=== PATIENT | male | born 1940 | race Caucasian/White ===

== ENCOUNTER 2017-10-19 13:43 | Outpatient (CLI) | payer MEDICARE, OTHER ==
--- NOTE | 2017-10-19 16:20 | MRI ---
CERVICAL SPINE MRI WITH AND WITHOUT CONTRAST: INDICATION: Cervical radiculopathy. COMPARISON: No prior imaging comparison available. FINDINGS: There is multilevel osseous fusion of the cervical spine spanning C4 through C7 levels. There is oss eous incorporation which obliterates the [place]. croix disk spaces throughout this region. There is associa rodrick multilevel posterior decompression. There is an associated focal kyphosis, as well with a result ant generalized mild anterior CSF effacement of the region of multilevel osseous fusion. This does r esult in multilevel ventral cord flattening of the operative site C4 through C7 with mild associated postoperative osseous central canal stenosis. Throughout the operative level, there is also osseous hypertrophy of the bilateral uncinate process, with associated mild to moderate bilateral neural fora haresh narrowing throughout the operative site. At the C2-3 level, there is a disk-osteophyte, most pronounced at the right paracentral zone with mil d effacement of the ventral thecal sac. There is bilateral facet hypertrophy with mild to moderate r ight and mild left neural foraminal narrowing. At the C3-4 level, broad-based disk-osteophyte results in mild central canal stenosis and mild ventra l cord flattening. There is bilateral uncinate process and facet hypertrophy producing moderate bifo raminal stenosis. Cervicothoracic junction reveals a broad-based disk-osteophyte with mild narrowing of the central can al and ventral cord flattening as well as mild bilateral neural foraminal narrowing. Postcontrast imaging reveals no pathologic intramedullary enhancement or mass producing enhancement o f the vertebral canal. The imaged posterior fossa contents are grossly unremarkable. No significant intramedullary signal abnormality is identified. IMPRESSION: Multilevel osseous fusion with associated posterior decompression of the mid to lower cervical spine. Mild multilevel ventral cord effacement as a result of osseous bridging and associated kyphosis wit hout associated pathologic intramedullary enhancement. Additional details are described above. POS: [facility]
[2017-10-19] MEDS ORDERED: Gadobenate Dimeglumine 529 MG/1 ML (20ML VIAL) ONE (16:26)
== END 2017-10-19 13:44 | disposition home or self-care (01) ==
LOC: MRI 13:43
PROVIDERS: ATTEND Nurse Practitioner Family
DX: M54.12 Radiculopathy, cervical region (principal); M40.202 Unspecified kyphosis, cervical region; Z98.1 Arthrodesis status
CPT/HCPCS: 72156; A9579

== ENCOUNTER 2018-04-09 16:03 | Outpatient (CLI) | payer MEDICARE, OTHER ==
[2018-04-09 16:43] LABS: #Basophils 0.1 thou/uL (0.0-0.2); #Eosinphils 0.2 thou/uL (0.0-0.7); #Lymphocytes 2.4 thou/uL (1.20-3.40); #Monocytes 0.7 thou/uL (0.11-0.59); #Neutrophils 4.6 thou/uL (1.40-6.50); %Basophils 0.9 % (0.0-1.0); %Eosinophils 2.5 % (0.0-10.0); %Lymphocytes 30.3 % (21.0-51.0); %Monocytes 8.4 % (0.0-10.0); %Neutrophils 57.9 % (42.0-75.0); Hemoglobin 14.3 g/dL (14.0-18.0); Mean Corpuscular HGB CONC 34.3 g/dL (32.0-36.0); Mean Corpuscular Hemoglobin 30.9 pg (27.0-31.0); Mean Platelet Volume 7.8 fL (7.4-10.4); Platelet Count 225 thou/uL (130-400); Red Blood Cell (RBC) Count 4.63 mill/uL (4.70-6.10); White Blood Cell (WBC) Count 7.9 thou/uL (4.8-10.8)
[2018-04-09 17:03] LABS: ALT (SGPT) 39 U/L (8-55); AST (SGOT) 24 U/L (5-34); Albumin 4.2 g/dL (3.4-4.8); Alkaline Phosphatase 78 U/L (40-150); Anion Gap 11 mmol/L (10-20); BUN (Urea Nitrogen) 32 mg/dL (8.4-25.7); Bilirubin, Total 0.5 mg/dL (0.2-1.2); Calc. Creatinine Clearance 0 mL/min (70-130); Calcium 9.8 mg/dL (7.8-10.44); Carbon Dioxide 25 mmol/L (23-31); Chloride 108 mmol/L (98-107); Estimated GFR-MDRD 55; Globulin 2.5 g/dL (2.4-3.5); Glucose 111 mg/dL (83-110); Potassium 4.5 mmol/L (3.5-5.1); Protein, Total 6.7 g/dL (5.8-8.1); Sodium 139 mmol/L (136-145)
--- NOTE | 2018-04-09 19:31 | EKG ---
Test Reason : Blood Pressure : / mmHG Vent. Rate : 065 BPM Atrial Rate : 065 BPM P-R Int : 176 ms QRS Dur : 104 ms QT Int : 384 ms P-R-T Axes : 017 041 036 degrees QTc Int : 399 ms Normal sinus rhythm Normal ECG When compared with ECG of 07-JUL-2005 13:41, No significant change was found Confirmed by JAQUELINE CRAMER, DR. Guzman ([id number]) on 04/09/2018 7:30:59 PM Referred By: HARINI Confirmed By:DR. Megan PARSONS MD
== END 2018-04-09 16:04 | disposition home or self-care (01) ==
LOC: LABBT 16:03
PROVIDERS: ATTEND Surgery
DX: Z01.818 Encounter for other preprocedural examination (principal); K40.90 Unilateral inguinal hernia, without obstruction or gangrene, not specified as recurrent
CPT/HCPCS: 80053; 85025; 93005; 93010

== ENCOUNTER 2018-04-11 06:51 | Day surgery (SDC) | payer MEDICARE, OTHER ==
[2018-04-09 16:39] VITALS: BMI 27.2
[2018-04-11] MEDS ORDERED: Bupivacaine/Epinephrine 0.25% 30 ML VIAL ONE (08:35)
[2018-04-11] MEDS ORDERED: CEFAZOLIN 2 GM/50 ML BAG ONE (08:43)
[2018-04-11] MEDS ORDERED: Fentanyl 100 MCG/2 ML VIAL ONE (08:45)
[2018-04-11] MEDS ORDERED: Lidocaine 1% PF 5 ML VIAL ONE (09:40)
[2018-04-11] MEDS ORDERED: Ondansetron PF 4 MG/2 ML Vial ONE (09:40)
[2018-04-11] MEDS ORDERED: ePHEDrine/0.9% NaCl/PF SYRINGE 50 mg/10 ml ONE (09:40)
[2018-04-11] MEDS ORDERED: PROPOFOL 200 MG/20 ML VIAL ONE (09:40)
[2018-04-11] MEDS ORDERED: HYDROcodone/Acetaminophen 5/325 mg Tablet ONE (11:04)
--- NOTE | 2018-04-12 08:52 | OP ---
DATE OF PROCEDURE: 04/11/2018 PREOPERATIVE DIAGNOSIS: Right inguinal hernia. PROCEDURE PERFORMED: Right inguinal hernia repair with mesh. INDICATIONS: A 77-year-old male, who has a painful right groin bulge, found to have a hernia. FINDINGS: An indirect right inguinal hernia. DESCRIPTION OF PROCEDURE: After informed consent was obtained, the patient was taken to the operating room, given general endotracheal anesthesia. He was placed in supine position. His groin was prepped and draped in usual fashion. Local anesthesia was infiltrated subcutaneously and deep. A transverse right inguinal incision was performed, subcu was divided sharply. The fascia of external oblique was incised in direction of its fibers through the external ring. Spermatic cord was isolated with a Meta drain. Cremasteric fibers were . Hernia sac was dissected out down to the internal ring. The hernia sac was reduced, and reduction was maintained utilizing a PHS hernia system. The posterior layer was placed in the preperitoneal space. Anterior was laid out. Sutured to the pubic tubercle medially. Tucked down to the external oblique fascia laterally. Medially, we sutured to the pubic tubercle with a 2-0 Prolene suture. The cord was placed in anatomic, and the external oblique fascia was closed over the cord with a running 3-0 Vicryl. The Aly's was closed with interrupted 3-0 Vicryl, and the skin was closed with a running subcuticular 4-0 Rapide. Steri-Strips were applied. Sterile bandage was applied. The patient tolerated the procedure well, transferred to recovery in good condition. Sponge and needle count verified, correct x2. Job ID: [id number]
== END 2018-04-11 11:45 | disposition home or self-care (01) ==
LOC: SDC 06:51
PROVIDERS: ATTEND Surgery
PROC: 0WUF0JZ Supplement Abdominal Wall with Synthetic Substitute, Open Approach (ICD-10-PCS; principal; 2018-04-11)
DX: K40.90 Unilateral inguinal hernia, without obstruction or gangrene, not specified as recurrent (principal); I10 Essential (primary) hypertension; E78.00 Pure hypercholesterolemia, unspecified; Z79.82 Long term (current) use of aspirin; Z79.899 Other long term (current) drug therapy; Z87.891 Personal history of nicotine dependence
CPT/HCPCS: 49585; C1781; J2001; J2405; J2704; J3010

== ENCOUNTER 2018-06-27 07:47 | Outpatient (CLI) | payer MEDICARE, OTHER ==
--- NOTE | 2018-06-27 08:57 | RAD ---
FIVE VIEWS CERVICAL SPINE INCLUDING FLEXION AND EXTENSION VIEWS: Date: 06-27-18 History: Cervical spondylosis. Right arm numbness at night for three months. History of cervical fusi on. Comparison: None available. FINDINGS: There is osseous fusion of C4 through C7. In the more inferior aspect of the C7 vertebral as well as T1 vertebral body are not well imaged on this exam. No obvious fracture is seen. Flexion and extensio n views of the cervical spine are obtained and no abnormal translational motion is present. Preverteb ral soft tissues are within normal limits. Osteophytes are seen anteriorly at the C3-4 level. Vascula r calcifications are seen in the carotid arteries bilaterally. Median sternotomy wires are seen parti ally imaged. Calcified right paramediastinal lymph node is present. IMPRESSION: 1. Osseous fusion spanning C4 through C7. 2. Nonvisualization of the cervicothoracic junction. Otherwise no fracture or subluxation appreciated . 3. Degenerative changes at the C3-4 level. POS: [facility]
== END 2018-06-27 07:48 | disposition home or self-care (01) ==
LOC: BICRAD 07:47
PROVIDERS: ATTEND Anesthesiology Pain Medicine
DX: M47.812 Spondylosis without myelopathy or radiculopathy, cervical region (principal); Z98.1 Arthrodesis status
CPT/HCPCS: 72050

== ENCOUNTER 2018-11-27 05:39 | Emergency (ER) | payer MEDICARE, OTHER ==
--- NOTE | 2018-11-27 07:48 | RAD ---
CHEST 1 VIEW ABDOMEN 2 VIEWS: HISTORY: Constipation. Abdomen pain. Nausea. FINDINGS: Cardiac silhouette is unremarkable. Pulmonary vasculature accentuated by shallow inspiration. Mediast inum is midline with aortic calcification and postoperative changes. Minimal linear atelectasis at the left lung base. Hepatic flexure of the colon lies between the dome of the liver and the right hem idiaphragm. No evidence of free subdiaphragmatic gas Large amount of stool throughout the colon. Gas distended loop of bowel in the right mid abdomen with air-fluid levels on the upright view has the appearance of the cecum on the supine view. Nondilated gas-filled loops of small bowel are present throughout the remainder of the abdomen. Calci fication over the arterial structures. Phleboliths project over the pelvis. IMPRESSION: 1. Constipation. Nonspecific small bowel gas pattern. 2. Atherosclerosis. Transcribed Date/Time: 11/27/2018 9:08 AM
== END 2018-11-27 07:03 | disposition home or self-care (01) ==
LOC: ERS 05:39
DX: K59.00 Constipation, unspecified (principal); Z71.6 Tobacco abuse counseling; I25.10 Atherosclerotic heart disease of native coronary artery without angina pectoris; Z79.82 Long term (current) use of aspirin; Z79.899 Other long term (current) drug therapy; F17.220 Nicotine dependence, chewing tobacco, uncomplicated
CPT/HCPCS: 74022; 99406

== ENCOUNTER 2021-06-23 20:08 | Emergency (ER) | payer MEDICARE, OTHER ==
[2021-06-23 21:39] LABS: #Eosinphils 0.1 thou/uL (0.0-0.7); #Lymphocytes 2.1 thou/uL (1.20-3.40); #Monocytes 0.7 thou/uL (0.11-0.59); #Neutrophils 3.1 thou/uL (1.40-6.50); %Basophils 0.7 % (0.0-1.0); %Lymphocytes 34.3 % (21.0-51.0); Hemoglobin 12.9 g/dL (14.0-18.0); Mean Corpuscular HGB CONC 33.6 g/dL (32.0-36.0); Mean Corpuscular Hemoglobin 31.1 pg (27.0-31.0); Mean Corpuscular Volume 92.6 fL (78.0-98.0); Mean Platelet Volume 6.9 fL (7.4-10.4); Platelet Count 270 thou/uL (130-400); Red Blood Cell (RBC) Count 4.15 mill/uL (4.70-6.10)
[2021-06-23 21:56] LABS: Bacteria/HPF 4+ HPF (None Seen); Bilirubin Negative (Negative); Blood, Urine 2+ (Negative); Clarity Extra Turbid (Clear); Glucose, Urine (Dipstick) Normal (Negative); Ketone, Urine Negative (Negative); Leukocyte 500 Leu/uL (Negative); Nitrite 2+ (Negative); Protein, Urine (Dipstick) 100 mg/dL (Neg-Trace); RBC/HPF 21-50 HPF (0-3); Renal Epithelial 0-3 HPF (None Seen); Specific Gravity, Urine 1.017 (1.002-1.036); Squamous Epithelial None Seen HPF (0-3); Urobilinogen Normal mg/dL (Less than 2); WBC/HPF Greater than 50 HPF (0-3); pH, Urine 5.5 (5.0-9.0)
[2021-06-23 22:00] LABS: ALT (SGPT) 39 U/L (8-55); AST (SGOT) 30 U/L (5-34); Albumin 3.8 g/dL (3.4-4.8); Alkaline Phosphatase 97 U/L (40-110); Anion Gap 10 mmol/L (10-20); BUN (Urea Nitrogen) 25 mg/dL (8.4-25.7); Bilirubin, Total 0.8 mg/dL (0.2-1.2); Calc. Creatinine Clearance 0 mL/min (70-130); Calcium 9.4 mg/dL (7.8-10.44); Carbon Dioxide 27 mmol/L (23-31); Chloride 105 mmol/L (98-107); Globulin 3.1 g/dL (2.4-3.5); Glucose 113 mg/dL (83-110); Potassium 4.1 mmol/L (3.5-5.1); Protein, Total 6.9 g/dL (5.8-8.1); Sodium 138 mmol/L (136-145)
[2021-06-23] MEDS ORDERED: Lidocaine 1% PF 5 ML VIAL ONE (22:19)
[2021-06-23] MEDS ORDERED: cefTRIAXone\\ROCEPHIN 1 GM VIAL ONE (22:19)
== END 2021-06-23 22:46 | disposition home or self-care (01) ==
LOC: ERS 20:08
DX: N39.0 Urinary tract infection, site not specified (principal); R00.0 Tachycardia, unspecified; I25.10 Atherosclerotic heart disease of native coronary artery without angina pectoris; I10 Essential (primary) hypertension; I48.91 Unspecified atrial fibrillation; Z87.891 Personal history of nicotine dependence; Z79.82 Long term (current) use of aspirin; Z79.01 Long term (current) use of anticoagulants; Z79.899 Other long term (current) drug therapy
CPT/HCPCS: 36415; 80053; 81003; 81015; 85025; 87077; 87086; 87186; 96372; 99283; J0696

== ENCOUNTER 2022-12-12 14:53 | Outpatient (CLI) | payer MEDICARE, OTHER | END 2022-12-12 14:54 | disposition home or self-care (01) | LOC: RAD 14:53 | PROVIDERS: ATTEND Nurse Practitioner Family | DX: M54.2 Cervicalgia (principal); S12.300A Unspecified displaced fracture of fourth cervical vertebra, initial encounter for closed fracture; S12.400A Unspecified displaced fracture of fifth cervical vertebra, initial encounter for closed fracture; Z98.1 Arthrodesis status | CPT/HCPCS: 72040 ==

== ENCOUNTER 2022-12-13 12:33 | Outpatient (CLI) | payer MEDICARE, OTHER | END 2022-12-13 12:34 | disposition home or self-care (01) | LOC: BICCT 12:33 | PROVIDERS: ATTEND Nurse Practitioner Family | DX: S12.9XXA Fracture of neck, unspecified, initial encounter (principal); S12.400A Unspecified displaced fracture of fifth cervical vertebra, initial encounter for closed fracture; Z98.1 Arthrodesis status | CPT/HCPCS: 72125 ==

== ENCOUNTER 2023-06-01 12:00 | Inpatient (IN) | payer MEDICARE, OTHER ==
[2023-06-01 12:41] VITALS: BMI 27.2
[2023-06-01 13:52] LABS: Hematocrit 41.1 % (38.8-50.0); Hemoglobin 13.9 g/dL (13.5-17.5); Mean Corpuscular HGB CONC 33.8 g/dL (32.0-36.0); Mean Corpuscular Hemoglobin 30.3 pg (27.0-33.0); Mean Corpuscular Volume 89.5 fl (81.2-95.1); Mean Platelet Volume 10.5 fl (7.4-10.4); Platelet Count 242 10x3/uL (150-450); RBC Distribution Width 13.2 % (11.5-14.5); Red Blood Cell (RBC) Count 4.59 10x6/uL (4.32-5.72); White Blood Cell (WBC) Count 7.7 10x3/uL (3.5-10.5)
[2023-06-01 14:07] LABS: ALT (SGPT) 36 U/L (8-55); AST (SGOT) 32 U/L (5-34); Albumin 4.3 g/dL (3.4-4.8); Alkaline Phosphatase 78 U/L (40-110); Anion Gap 14 mmol/L (10-20); BUN (Urea Nitrogen) 15 mg/dL (8.4-25.7); Calc. Creatinine Clearance 73 mL/min (70-130); Calcium 9.5 mg/dL (7.8-10.44); Carbon Dioxide 23 mmol/L (23-31); Chloride 108 mmol/L (98-107); Estimated GFR 78; Globulin 2.4 g/dL (2.4-3.5); Glucose 138 mg/dL (83-110); Potassium 4.1 mmol/L (3.5-5.1); Protein, Total 6.7 g/dL (5.8-8.1); Sodium 141 mmol/L (136-145)
[2023-06-01 14:33] LABS: INR-International Normal Ratio 1.3
[2023-06-06] MEDS ORDERED: Heparin 10,000 UNITS/ 10 ML VIAL ONE ×2 (08:18→09:13)
[2023-06-06] MEDS ORDERED: CEFAZOLIN 2 GM VIAL ONE (08:18)
[2023-06-06] MEDS ORDERED: Protamine Sulfate 50 MG/5 ML VIAL ONE (08:18)
[2023-06-06] MEDS ORDERED: Rocuronium Bromide 10 MG/ML (10ML VIAL) ONE (09:20)
[2023-06-06] MEDS ORDERED: Phenylephrine 10 MG/ML VIAL ONE (09:21)
[2023-06-06] MEDS ORDERED: fentaNYL 50 mcg/mL 1 mL Vial ONE (09:21)
[2023-06-06] MEDS ORDERED: PROPOFOL 20 ML ONE (09:21)
[2023-06-06] MEDS ORDERED: Lidocaine 1% PF 5 ML VIAL ONE (09:21)
[2023-06-06] MEDS ORDERED: SUGAMMADEX SODIUM 200 MG/2 ML VIAL ONE (10:31)
[2023-06-06] MEDS ORDERED: HYDROcodone/Acetaminophen 5/325 mg Tablet ONE (12:13)
== END 2023-06-06 15:00 | disposition home or self-care (01) | DRG 274 ==
LOC: SURG A 06-06 06:58
PROVIDERS: ADMIT Internal Medicine Cardiovascular Disease; ATTEND Internal Medicine Cardiovascular Disease
PROC: 02L73DK Occlusion of Left Atrial Appendage with Intraluminal Device, Percutaneous Approach (ICD-10-PCS; principal; 2023-06-06)
PROC: B24BZZ4 Ultrasonography of Heart with Aorta, Transesophageal (ICD-10-PCS; 2023-06-06)
DX: I48.21 Permanent atrial fibrillation (principal); Z79.899 Other long term (current) drug therapy; Z79.82 Long term (current) use of aspirin
CPT/HCPCS: 33340; 80053; 85027; 85347; 85610; 86850; 86900; 86901; 93306; 93312; C1759; C1760; C1769; C1894; J1644; J2371; J2704; J2720; J3010; Q9967

== ENCOUNTER 2023-07-13 05:49 | Day surgery (SDC) | payer MEDICARE, OTHER ==
[2023-07-12 13:26] VITALS: BMI 27.2
[2023-07-13 06:40] LABS: #Eosinphils 0.3 thou/uL (0.0-0.7); #Monocytes 0.7 thou/uL (0.11-0.59); #Neutrophils 5.1 thou/uL (1.40-6.50); %Basophils 0.5 % (0.0-1.0); %Eosinophils 3.5 % (0.0-10.0); %Lymphocytes 30.2 % (21.0-51.0); %Monocytes 7.7 % (0.0-10.0); %Neutrophils 57.8 % (42.0-75.0); Hematocrit 42.3 % (42.0-52.0); Mean Corpuscular HGB CONC 33.1 g/dL (32.0-36.0); Mean Corpuscular Hemoglobin 30.8 pg (27.0-31.0); Mean Platelet Volume 10.3 fL (7.4-10.4); Platelet Count 203 10x3/uL (130-400); RBC Distribution Width 12.9 % (11.5-14.5); Red Blood Cell (RBC) Count 4.55 mill/uL (4.70-6.10); White Blood Cell (WBC) Count 8.7 10x3/uL (4.8-10.8)
[2023-07-13 06:56] LABS: INR-International Normal Ratio 1.3; Prothrombin Time 16.4 sec (12.0-14.7)
[2023-07-13 07:04] LABS: Anion Gap 15 mmol/L (10-20); BUN (Urea Nitrogen) 24 mg/dL (8.4-25.7); Calc. Creatinine Clearance 67 mL/min (70-130); Calcium 9.7 mg/dL (7.8-10.44); Carbon Dioxide 27 mmol/L (23-31); Chloride 104 mmol/L (98-107); Estimated GFR 71; Glucose 108 mg/dL (83-110); Potassium 4.2 mmol/L (3.5-5.1); Sodium 142 mmol/L (136-145)
== END 2023-07-13 08:50 | disposition home or self-care (01) ==
LOC: SDC 05:49
PROVIDERS: ATTEND Internal Medicine Cardiovascular Disease
PROC: B246ZZ4 Ultrasonography of Right and Left Heart, Transesophageal (ICD-10-PCS; principal; 2023-07-13)
DX: I48.21 Permanent atrial fibrillation (principal); I34.0 Nonrheumatic mitral (valve) insufficiency; I25.10 Atherosclerotic heart disease of native coronary artery without angina pectoris; I10 Essential (primary) hypertension; Z98.890 Other specified postprocedural states; Z95.1 Presence of aortocoronary bypass graft; Z79.899 Other long term (current) drug therapy; Z79.01 Long term (current) use of anticoagulants; Z79.82 Long term (current) use of aspirin
CPT/HCPCS: 36415; 80048; 85025; 85610; 93312